=== PATIENT | male | born 1970 | race African-American/Black ===

== ENCOUNTER 2017-12-15 06:02 | Emergency (ER) | payer OTHER ==
[~2017-12-15] VITALS: Ht 193 cm; Wt 130.0 kg
[2017-12-15 06:04] VITALS: BP 167/111
[2017-12-15] MEDS ORDERED: DEXAMETHASONE 4 MG TABLET ONE (06:46)
[2017-12-15] MEDS ORDERED: DEXAMETHASONE 4 MG TABLET PO ONE (07:00)
== END 2017-12-15 07:15 | disposition home or self-care (01) ==
LOC: ED 07:00
DX: J02.9 Acute pharyngitis, unspecified (principal); J01.00 Acute maxillary sinusitis, unspecified; H10.32 Unspecified acute conjunctivitis, left eye
CPT/HCPCS: 99283